=== PATIENT | female | born 1970 | race Caucasian/White ===

== ENCOUNTER → 2024-02-03 | Outpatient (CLI) | payer BC ==
[~2024-02-03] MED LIST: Bactrim Ds Tab1 EACH PO; CIPR500 PO; LEVSOD100 PO; LEVSOD88 PO; LORA1 PO; LOSA25 PO; METF500 PO; PHENA200 PO; PROGESTERONE CREAM; SULTRIDS PO; THYROID MED
== END ==
LOC: LAB SHORT 14:16
DX: N93.9 Abnormal uterine and vaginal bleeding, unspecified (principal)
CPT/HCPCS: 88305

== ENCOUNTER 2024-07-15 08:55 | Day surgery (SDC) | payer BC ==
[2024-07-15] VITALS (12 sets, daily range): BP systolic 134–169; BP diastolic 83–108
[~2024-07-15] VITALS: Ht 160 cm; Wt 116.1 kg
[~2024-07-15 08:55] MED LIST changes: +AMLO5 PO; +CefOXitin Sodium 2,000 MG in NS 50 ML IV SCH; +HYDCHL25 PO; +Indocyanine Green 25 MG Vial IV ONE; +LEVOTHYROXINE50 MC9 PO; +Lactated Ringer's 1,000 ML IV SCH; +OMEP20ER PO; +TESTOSTERONE PELLET; +THYR60 PO
[2024-07-15] MEDS ORDERED: propofoL 20 ML IV ONE (08:57)
[2024-07-15] MEDS ORDERED: FentaNYL Citrate 50 MCG/ML 2 ML Injection ONE ×2 (08:57→11:04)
[2024-07-15] MEDS ORDERED: Rocuronium Bromide 10 MG/ML 5ML Injection IV ONE ×2 (08:58→10:13)
[2024-07-15] MEDS ORDERED: Bupivacaine 0.5% HCl 5 MG/ML 30MLVIAL ONE (09:19)
--- NOTE | 2024-07-15 09:25 | NUR ---
History, Chart, Medications and Allergies reviewed before start of procedure. Patient confirms NPO status and agrees with scheduled surgery. Patient reports completing Chlorhexadine shower X2 prior to admission to hospital. Pre-Op teaching done. Pt verbalizes understanding.
[2024-07-15] MEDS ORDERED: Midazolam HCl 1MG / ML 2ML Vial ONE (09:36)
[2024-07-15] MEDS ORDERED: Ondansetron HCl 2 MG / ML 2ML Vial ONE (09:47)
[2024-07-15] MEDS ORDERED: Ketorolac Tromethamine 30mg Vial ONE (09:47)
[2024-07-15] MEDS ORDERED: Dexamethasone Sod Phos 10 MG/ML 1ML VIAL ONE (09:47)
[2024-07-15] MEDS ORDERED: Labetalol HCL 5 MG/ML 4ML Injection (Single Dose) ONE (10:04)
[2024-07-15] MEDS ORDERED: Sugammadex Sodium 200 MG/2ML SDV (100 MG/ML) ONE (10:32)
[2024-07-15] MEDS ORDERED: OxyCODONE 5 mg/Acetamin 325 mg TABLET PO PRN (11:20)
--- NOTE | 2024-07-15 12:10 | NUR ---
Discharge instructions reviewed with patient. Patient verbalizes understanding. Copy given to patient to take home. 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 Dressings X4 c/d/i. Patient States Post-Procedure ride home has been arranged. Discharged via wheelchair to private car for ride home.
== END 2024-07-15 12:15 | disposition home or self-care (01) ==
LOC: ORSCMMR 08:55 → ORD 10:15 → ORSCMMR 12:15
PROVIDERS: Surgery
PROC: BF031ZZ Plain Radiography of Gallbladder and Bile Ducts using Low Osmolar Contrast (ICD-10-PCS; principal; 2024-07-15 10:15)
PROC: 8E0W4CZ Robotic Assisted Procedure of Trunk Region, Percutaneous Endoscopic Approach (ICD-10-PCS; principal; 2024-07-15 10:15)
PROC: 0FT44ZZ Resection of Gallbladder, Percutaneous Endoscopic Approach (ICD-10-PCS; principal; 2024-07-15 10:15)
PROC: 3E0T3BZ Introduction of Anesthetic Agent into Peripheral Nerves and Plexi, Percutaneous Approach (ICD-10-PCS; principal; 2024-07-15 10:15)
DX: K82.4 Cholesterolosis of gallbladder (principal); I10 Essential (primary) hypertension; E03.9 Hypothyroidism, unspecified; E78.5 Hyperlipidemia, unspecified; E28.2 Polycystic ovarian syndrome; Z79.899 Other long term (current) drug therapy; E66.01 Morbid (severe) obesity due to excess calories; Z68.41 Body mass index [BMI] 40.0-44.9, adult
CPT/HCPCS: 88304; A9270; J0694; J1100; J1885; J2250; J2405; J2704; J3010; J7120